=== PATIENT | male | born 1960 | race Two or more races ===

== ENCOUNTER → 2022-07-23 | Outpatient (CLI) | payer MEDICAID ==
[~2022-07-23] VITALS: Ht 182.9 cm; Wt 115.2 kg
[~2022-07-23] MED LIST: ASCO500T11 PO; ASPI-378 OR; CHOL200021 PO; CYAN-17 PO; ENOX80IN8 SC; FLUT50SP; GEMF-19 PO; GLIM-5 PO; HYDR-4072 PO; WARF7.5T20 PO
== END | disposition home or self-care (01) ==
LOC: LAB 15:04 → EDSTATUS 07-28 08:30
PROVIDERS: ATTEND Orthopaedic Surgery Sports Medicine
DX: Z20.822 Contact with and (suspected) exposure to COVID-19 (principal)

== ENCOUNTER 2022-12-15 07:06 | Inpatient (IN) | payer OTHER ==
[~2022-12-15] VITALS: Ht 182.9 cm; Wt 121.7 kg
[~2022-12-15 07:06] MED LIST changes: +ALBUAER3 IN; +DexAMETHasone SOD PHOS 10MG/1ML VIAL INJ ONE; +FLUT110A IN; +GLYCOPYRROLATE 0.2 MG/ML 1ML VIAL ONE; +KETOROLAC TROMETH 30 MG/ML 1ML VIAL ONE; +LIDOCAINE 1% (LOCAL ANESTH.) PF 5ml SDV ONE; +LIDOCAINE 2% (LOCAL ANESTH.) PF 5ml SDV ONE; +MIDAZOLAM HCL 2MG/2ML 2ml VIAL (1mg/ml) ONE; +ONDANSETRON HCL 4 MG/2 ML VIAL ONE; +PROPOFOL 10 MG/ML 20 ML IV ONE; +SUGAMMADEX 200mg/2ml Vial (100MG/ML) IV ONE; +WARF2TAB49 PO; +WARF5TAB71 PO; -WARF7.5T20 PO; +fentaNYL CITRATE 100 MCG/2 ML VL ONE
[2022-12-15] MEDS ORDERED: VANCOMYCIN HCL 1000 MG VL ONE (07:21)
[2022-12-15] MEDS ORDERED: ceFAZolin 1GM/50ML 100 ML IV ONE (07:28)
[2022-12-15] MEDS ORDERED: TRANEXAMIC ACID 20 ML ONE (08:37)
[2022-12-15] MEDS ORDERED: CLINDAMYCIN 900MG IV 50 ML IV ONE (09:28)
[2022-12-15] MEDS ORDERED: ESMOLOL HCL 10 ML IV ONE (10:11)
[2022-12-15] MEDS ORDERED: ONDANSETRON HCL 4 MG/2 ML VIAL IV PRN (13:15)
[2022-12-15] MEDS ORDERED: NITROGLYCERIN 0.4 MG SL TAB SL PRN (13:15)
[2022-12-15] MEDS ORDERED: MORPHINE SULFATE INJ 2 MG/ml SYRG IV PRN (13:15)
[2022-12-15] MEDS ORDERED: HYDROmorphone HCL 2 MG/ML VL/or syr IV PRN (13:15)
[2022-12-15] MEDS: LACTATED RINGER'S 1,000 ML IV SCH ×2 (13:15→23:15)
[2022-12-15] MEDS: ceFAZolin 1GM/50ML 50 ML IV SCH ×2 (13:34→20:00)
[2022-12-15] MEDS ORDERED: PHENYLEPHRINE HCL 10 MG/ML VL IV ONE (14:30)
[2022-12-15 15:34] VITALS: BP 121/70
[2022-12-15] MEDS ORDERED: cefTRIAXone 1GM/50ML D5W 50 ML IV ONE (19:51)
[2022-12-15 20:00] VITALS: BP 121/70
[2022-12-15] MEDS: KETOROLAC TROMETH 30 MG/ML 1ML VIAL IV SCH (21:39)
[2022-12-15] MEDS: DOCUSATE SOD 100 MG CAP PO SCH (21:39)
[2022-12-15 22:00] VITALS: BP 121/70
[2022-12-16] MEDS: ceFAZolin 1GM/50ML 50 ML IV SCH (02:00)
[2022-12-16] MEDS: OXYCODONE W/ ACETAMINOPHEN 5/325MG TABLET PO PRN ×2 (02:52→06:51)
[2022-12-16 05:00] VITALS: BP 132/68
[2022-12-16 05:38] LABS: Hematocrit 37.8 % (41.0-53.0); Hemoglobin 12.8 g/dL (13.5-17.5)
[2022-12-16 05:59] LABS: Potassium 4.2 mmol/L (3.5-5.1)
[2022-12-16 06:04] LABS: Albumin 3.2 g/dL (3.4-5.0); BUN/Creatinine Ratio 21.8; Bilirubin, Total 0.6 mg/dL (0.2-1.0); Calcium 8.6 mg/dL (8.5-10.1); Total Protein 6.1 g/dL (6.4-8.2)
[2022-12-16 09:00] VITALS: BP 122/70
[2022-12-16] MEDS: DOCUSATE SOD 100 MG CAP PO SCH (09:06)
[2022-12-16] MEDS: KETOROLAC TROMETH 30 MG/ML 1ML VIAL IV SCH (09:07)
[2022-12-16] MEDS: LACTATED RINGER'S 1,000 ML IV SCH (09:15)
[2022-12-16 12:53] VITALS: BP 94/55
== END 2022-12-16 16:30 | disposition home or self-care (01) | DRG 322 ==
LOC: SUR 07:06 → OVERFLOW 13:09 → WEST WING 14:35
PROVIDERS: ADMIT Orthopaedic Surgery Sports Medicine; ATTEND Orthopaedic Surgery Sports Medicine
PROC: 0RRK0JZ Replacement of Left Shoulder Joint with Synthetic Substitute, Open Approach (ICD-10-PCS; principal; 2022-12-15 08:47)
DX: M13.812 Other specified arthritis, left shoulder (principal); I11.9 Hypertensive heart disease without heart failure; E66.01 Morbid (severe) obesity due to excess calories; E78.5 Hyperlipidemia, unspecified; Z20.822 Contact with and (suspected) exposure to COVID-19; J44.9 Chronic obstructive pulmonary disease, unspecified; Z68.36 Body mass index [BMI] 36.0-36.9, adult; Z79.01 Long term (current) use of anticoagulants; Z86.711 Personal history of pulmonary embolism
CPT/HCPCS: 36415; 73020; 76000; 80053; 82962; 85014; 85018; 97110; 97116; 97163; 97530; G0378; J0690; J0696; J1100; J1885; J2001; J2250; J2405; J2704; J3490